=== PATIENT | male | born 1960 | race Caucasian/White ===

== ENCOUNTER → 2021-08-25 | Day surgery (SDC) | payer OTHER ==
[~2021-08-25] VITALS: Ht 177.8 cm; Wt 113.4 kg
[~2021-08-25] MED LIST: ADVAIR 100-501 EACH INH; CITALOPRAM HBR20 MG PO; CLARITIN10 MG PO; FLOMAX0.4 MG PO; LIPITOR20 MG PO; METFORMIN HCL500 MG PO
[2021-08-25 08:42] LABS: HCT 50.2 % (42.0-52.0); HGB 16.5 g/dl (13.2-18.0); MCH 30.2 pg (25.0-31.0); MCHC 32.9 g/dL (32.0-36.0); MCV 91.8 fL (78.0-100.0); MPV 9.2 fL (6.0-9.5); RBC 5.47 M/uL (4.70-6.00); RDW 13.2 % (11.5-14.0)
[2021-08-25 08:57] LABS: ALBUMIN 3.9 g/dL (3.4-5.0); BILIRUBIN - TOTAL 0.3 mg/dL (0.2-1.0); BUN/CREAT RATIO (CALC) 19.5 RATIO; CREATININE 0.87 mg/dL (0.67-1.17); GLOBULIN (CALCULATION) 4.1 g/dL; POTASSIUM 4.6 mmol/L (3.5-5.1)
== END | disposition home or self-care (01) ==
LOC: FAS 08:03
PROVIDERS: Surgery
DX: Z12.11 Encounter for screening for malignant neoplasm of colon (principal); D12.3 Benign neoplasm of transverse colon; D12.6 Benign neoplasm of colon, unspecified; K58.9 Irritable bowel syndrome, unspecified; Z86.010 Personal history of colon polyps; Z96.642 Presence of left artificial hip joint; Z80.0 Family history of malignant neoplasm of digestive organs; Z87.891 Personal history of nicotine dependence
CPT/HCPCS: 36415; 80053; J1610; J2250; J2704; J7120